=== PATIENT | female | born 1960 | race Caucasian/White ===

== ENCOUNTER 2018-11-27 08:45 | Day surgery (SDC) | payer OTHER ==
[~2018-11-27] VITALS: Ht 165.1 cm; Wt 68.0 kg
[2018-11-27] MEDS ORDERED: fentaNYL 100 mcg/2 mL IV ONE (08:46)
[2018-11-27] MEDS ORDERED: Midazolam 2mg/2ml Inj ONE (08:46)
[2018-11-27 09:44] VITALS: BP 115/61
[2018-11-27] MEDS ORDERED: NKM (09:59)
[2018-11-27] MEDS ORDERED: Propofol 200mg/20ml IV ONE (10:10)
[2018-11-27] MEDS ORDERED: LR 1000ml ONE (10:10)
[2018-11-27 10:30] VITALS: BP 104/64
--- NOTE | 2018-11-27 10:31 | Endoscopy Procedure Note ---
Endoscopy Procedure Note General Indication for Procedure: screening Procedures Performed: colonoscopy Operative Findings/Diagnosis: one polyp Specimen: yes Pt Tolerated Procedure Well: Yes Estimated Blood Loss: none Anesthesia Anesthesiologist: angel Anesthesia: MAC Inserted Devices Implant(s) used?: No Quality Quality of Bowel Preparation: Excellent Did scope reach the cecum?: Yes Was there any complications?: No GI Core Measures 50 yrs or older w/o bx or poly: No 10yrs. F/U not recommended: Yes If not recommended, why?: Above average risk 10 yrs. F/U needed: Yes 18 years or older w/prev. colo: No Leon Beauchamp MD Nov 27, 2018 10:31
[2018-11-27 10:40] VITALS: BP 118/70
[2018-11-27 10:50] VITALS: BP 110/65
[2018-11-27 11:00] VITALS: BP 110/60
--- NOTE | 2018-11-27 18:30 | Procedure Note ---
DATE OF PROCEDURE: 11/27/2018 SURGEON: Leon Beauchamp M.D. PROCEDURE: Colonoscopy with biopsy. ANESTHESIA: Per Dr. Nation. INSTRUMENT: Olympus adult flexible colonoscope. INDICATION: Screening colonoscopic evaluation. REASON FOR PROCEDURE: The procedure, risks, benefits, and possible consequences, including hemorrhage, aspiration, perforation and infection, and alternative treatments, were explained to the patient/legal guardian by Dr. Leon Beauchamp and the patient/legal guardian understood and accepted these risks. DESCRIPTION OF PROCEDURE: After informed consent was obtained and the patient was adequately sedated, first rectal exam was performed, which was normal. Then, the scope was advanced from rectum into the cecum, then subsequently to terminal ileum. Quality of prep was very good. The patient had 1 small polyp in the rectum, which was removed with cold biopsy forceps technique. There were 1 or 2 scattered diverticuli in the left colon. The rest of the colonoscopic examination grossly looked within normal limits. Retroflexion of rectum showed evidence of small internal hemorrhoids. SUMMARY OF FINDINGS: 1. One rectal polyp, removed. 2. Small internal hemorrhoids. 3. Scattered diverticulosis. RECOMMENDATIONS: 1. Follow path. 2. We recommend repeat colonoscopy in 5 years. Leon Beauchamp M.D. DR: CALEB JOB#: [id number] CC:
== END 2018-11-27 12:00 | disposition home or self-care (01) ==
LOC: GAS 08:45
DX: Z12.11 Encounter for screening for malignant neoplasm of colon (principal); K62.1 Rectal polyp; K64.8 Other hemorrhoids; K57.90 Diverticulosis of intestine, part unspecified, without perforation or abscess without bleeding
CPT/HCPCS: 45380; J2250; J2704; J3010; 94003; 94150